=== PATIENT | female | born 1975 | race Caucasian/White ===

== ENCOUNTER 2017-07-08 10:13 | Emergency (ER) | payer SELFPAY ==
[~2017-07-08] VITALS: Ht 157.5 cm; Wt 63.0 kg
[~2017-07-08 10:13] MED LIST: PANT20TA3 PO
[2017-07-08] MEDS ORDERED: KETOROLAC 30 MG/1 ML IVPush ONE (10:30)
[2017-07-08] MEDS ORDERED: SODIUM CHLORIDE FLUSH 10ML SYR IVF ONE (10:30)
[2017-07-08] MEDS ORDERED: MORPHINE SULFATE 4 MG/ML, 1ML IVPush PRN (10:30)
[2017-07-08] MEDS ORDERED: SODIUM CHLORIDE 0.9% 1,000ML IVBOLUS ONE (10:30)
[2017-07-08] MEDS ORDERED: ONDANSETRON 2MG/ML, 2ML IVPush ONE (10:30)
[2017-07-08 10:53] LABS: HEMATOCRIT 44.5 % (34.6-47.8); HEMOGLOBIN 15.5 g/dL (11.7-16.4); WHITE BLOOD COUNT 5.4 x10^3/uL (3.4-10)
[2017-07-08 11:05] LABS: ASPARTATE AMINO TRANSFERASE 14 U/L (15-37); BLOOD UREA NITROGEN 11 mg/dL (7-18)
[2017-07-08 11:10] LABS: IS PT STATUS REG ER OR PRE ER? YES
[2017-07-08] MEDS ORDERED: KETOROLAC 30 MG/1 ML ONE (11:12)
[2017-07-08] MEDS ORDERED: morphine SULFATE 10 MG/ML, 1ML ONE (11:12)
[2017-07-08] MEDS ORDERED: ONDANSETRON 2MG/ML, 2ML ONE (11:13)
[2017-07-08 13:34] VITALS: BP 97/59
== END 2017-07-08 13:37 | disposition home or self-care (01) ==
LOC: ED 10:52
DX: R07.89 Other chest pain (principal); F17.200 Nicotine dependence, unspecified, uncomplicated; Z90.49 Acquired absence of other specified parts of digestive tract; Z90.710 Acquired absence of both cervix and uterus; K21.9 Gastro-esophageal reflux disease without esophagitis
CPT/HCPCS: 36415; 71010; 80053; 84484; 85025; 85610; 85730; 93005; 96361; 96374; 96375; 99285; J1885; J2405; J7030

== ENCOUNTER 2018-09-22 10:27 | Emergency (ER) | payer MEDICAID ==
[~2018-09-22] VITALS: Ht 157.5 cm; Wt 64.4 kg
--- NOTE | 2018-09-22 10:48 | NUR ---
PT STATED THAT SHE WOKE UP THIS MORNING DIZZY WITH NAUSEA AND SOB. PT IS ALERT, ORIENTED, WITH NAD. PT IS CONNECTED TO THE MONITOR. CALL LIGHT WITHIN REACH. MD AT BEDSIDE.
[2018-09-22] MEDS ORDERED: ONDANSETRON ODT 4 MG ONE (10:55)
[2018-09-22] MEDS ORDERED: MECLIZINE CHEWABLE 25 MG TAB ONE (10:55)
[2018-09-22] MEDS ORDERED: MECLIZINE CHEWABLE 25 MG TAB PO ONE (11:00)
[2018-09-22] MEDS ORDERED: ONDANSETRON ODT 4 MG PO ONE (11:00)
--- NOTE | 2018-09-22 11:54 | NUR ---
PT IS RESTING IN BED, TALKING WITH FAMILY, RESPIRATIONS EQUAL AND NON LABORED. NAD. PT IS CONNECTED TO THE MONITOR. CALL LIGHT WITHIN REACH. PT STATED THAT THE MEDICATION HELPED HER. PT IS APPRECIATIVE.
[2018-09-22 12:42] VITALS: BP 103/64
--- NOTE | 2018-09-22 12:42 | NUR ---
PT AMBULATED TO THE BATHROOM WITH STEADY GAIT.
--- NOTE | 2018-09-22 13:20 | NUR ---
Patient given discharge instructions and they have confirmed that they understand the instructions. Patient ambulatory with steady gait.
== END 2018-09-22 13:22 | disposition home or self-care (01) ==
LOC: ED 12:28
DX: R42 Dizziness and giddiness (principal); R11.0 Nausea; H53.149 Visual discomfort, unspecified; R06.02 Shortness of breath; K21.9 Gastro-esophageal reflux disease without esophagitis; Z87.891 Personal history of nicotine dependence; Z90.89 Acquired absence of other organs; Z90.710 Acquired absence of both cervix and uterus
CPT/HCPCS: 93005; 99283; Q0162